=== PATIENT | female | born 1975 | race Caucasian/White ===

== ENCOUNTER 2019-07-04 16:42 | Emergency (ER) | payer MEDICARE, MEDICAID, SELFPAY ==
[2019-07-04] VITALS (7 sets, daily range): BP systolic 114–124; BP diastolic 63–94; PULSE 81–90; RESP 14–18; TEMP 37.2; O2SAT 98–100; BMI 33.6
--- NOTE | 2019-07-04 17:04 | CTR_ITS ---
PROCEDURE INFORMATION: Exam: CT Abdomen And Pelvis With Contrast Exam date and time: 07/04/2019 5:33 PM Age: 43 years old Clinical indication: Abdominal pain; Localized; Prior surgery; Surgery date: 6+ months; Surgery type: Appy, hyst; Patient HX: C/O lower abd/pelvic pain w rectal bleeding TECHNIQUE: Imaging protocol: Computed tomography of the abdomen and pelvis with intravenous contrast. Total DLP: 577.8 mGy-cm Radiation optimization: All CT scans at this facility use at least one of these dose optimization techniques: automated exposure control; mA and/or kV adjustment per patient size (includes targeted exams where dose is matched to clinical indication); or iterative reconstruction. Contrast material: OMNI 300; Contrast volume: 95 ml; Contrast route: 20G; Other contrast: Route: Oral, Material: dilute Omni 300 - 20 ml, Volume: 450; COMPARISON: CT Abdomen/[place] [id number] 10/20/2016 3:28 PM FINDINGS: Liver: Normal. No mass. Gallbladder and bile ducts: The gallbladder has been removed. Pancreas: Normal. No ductal dilation. Spleen: Normal. No splenomegaly. Adrenals: Normal. No mass. Kidneys and ureters: Normal. No hydronephrosis. Stomach and bowel: There are multiple colonic diverticula. Associated mucosal thickening and mesenteric inflammatory stranding is present at the junction of the distal descending and sigmoid colon consistent with diverticulitis. No large abscess formation is seen. Appendix: There has been an appendectomy. Intraperitoneal space: Unremarkable. No free air. No significant fluid collection. Vasculature: Unremarkable. No abdominal aortic aneurysm. Lymph nodes: Unremarkable. No enlarged lymph nodes. Bladder: Unremarkable as visualized. Reproductive: The uterus is not visualized, consistent with hysterectomy. 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 There is a transitional lumbosacral vertebra as seen on the prior study. Degenerative changes are present in the visualized spine. Soft tissues: Unremarkable. CT/CT abdomen pelvis w con* [id number] IMPRESSION: Findings consistent with acute diverticulitis. Radiation Dose CTDIVOL = (mGy): DLP = 577.8 (mGy-cm)
--- NOTE | 2019-07-04 17:08 | ED_ITS ---
HPI - Abdominal Pain General: Chief Complaint: Abdominal Pain Stated Complaint: rectal bleeding for several days Time Seen by Provider: 07/04/19 16:57 History of Present Illness: HPI narrative: Patient is a 43-year-old female who presents to the emergency department complaint of bright red blood with BMs for last 9 days and abdominal cramping and pain for last 7 days. She states initially she took 800 mg of Motrin for pain but only did that for 3 days and then was told to stop. She is not on any other blood thinners and is taken no other NSAIDs. She states she has had rectal bleeding in the past but usually resolved. She admits to ongoing fatigue. She has not informed her primary care provider or oncologist. History of breast cancer, status post chemo and radiation therapy. Denies a history of colitis or specific diverticulitis. She has [id number] placed. Status post lumpectomy. Denies any recent colonoscopy. She has no allergies to medications. Patient has pictures of shows bright red blood in the toilet. MD elicited complaint: abdominal pain Pertinent past history: gastrointestinal bleeding Pain Consistency: intermittent Location: LLQ Severity: moderate Quality: cramping Radiation: back Migration to: LL Exacerbating factors: bowel movement Relieving factors: nothing Associated Symptoms: Reports GI cramping, hematochezia and melena; Denies dysuria and fever(s) Treatments prior to arrival: NSAIDs Review of Systems Const: Denies: fever Eyes: Denies: change in vision ENMT: Denies: dry mouth Card: Denies: edema Resp: Denies: shortness of breath GI: Reports: cramping, blood in stool and black tarry stool : Denies: flank pain, difficulty urinating or painful urination Musc: Denies: extremity swelling or redness Skin/Breast: Denies: rash or skin swelling Neuro: Denies: headache or weakness in extremities Psych: Denies: anxiety Endo: Denies: excessive urination Herb/Lymph: Denies: purpura All/Imm: Denies: hives PFSH ED PFSH: Statuses (acute, chronic, etc) shown below reflect problem list status as previously entered and may not be historically accurate Social History Smoking and tobacco status: current every day smoker Physical Exam Const: COMMON NORMALS: no apparent distress, oriented x3 and alert ORIENTATION/CONSCIOUSNESS: Yes oriented to person and Yes oriented to place HENMT: COMMON NORMALS: normocephalic HEAD & SCALP: normal to inspection and normocephalic Eye: COMMON NORMALS: PERRL, EOMs intact bilaterally and conjunctivae normal GENERAL EYE: normal appearance of both eyes CONJUNCTIVA: Yes conjunctivae normal PUPIL: Yes PERRL Neck/C-Spine: COMMON NORMALS: full ROM, no lymphadenopathy, supple, no meningeal signs and no JVD GENERAL: Yes normal visual inspection and Yes tra david midline Lymph: LYMPHATIC: no lymphadenopathy noted Chest: COMMONS NORMALS: inspection of chest normal Resp: COMMON NORMALS: normal respiratory effort, no retractions and clear to auscultation bilaterally EFFORT & INSPECTION: Yes able to speak in complete sentences AUSCULTATION: clear to auscultation bilaterally Cardio: COMMON NORMALS: no JVD, regular rate and regular rhythm RATE: regular rate RHYTHM: regular rhythm GI: AUSCULTATION: Yes normoactive bowel sounds PALPATION: Yes tender (moderate) Details: LLQ : COMMON NORMALS: Yes no CVA tenderness BLADDER/KIDNEY EXAM: Yes no CVA tenderness Back/Pelvis: COMMON NORMALS: no CVA tenderness THORACIC SPINE/UPPER BACK: Y es normal to inspection LUMBAR SPINE/LOWER BACK: Yes normal to inspection Extremity: COMMON NORMALS: normal to inspection, full ROM and normal capillary refill GENERAL: Yes normal exam except as noted Neuro: COMMON NORMALS: oriented x3, CN's II-XII intact bilaterally, moves all extremities, no focal motor deficits and no sensory deficits noted SENSORIUM/ORIENTATION: Yes alert, Yes oriented to person and Yes oriented to place MENINGEAL SIGNS: Yes no meningeal signs SPEECH: speech normal GAIT: Yes normal gait Psych: COMMON NORMALS: mental status grossly normal, thought process normal, cooperative, affect normal and speech normal APPEARANCE: Yes grossly normal SPEECH: Yes normal speech THOUGHT PROCESS: normal thought process Skin: COMMON NORMALS: no rashes or lesions noted, no wounds and skin turgor normal GENERAL SKIN EXAM: no rashes or lesions noted, elasticity normal and turgor normal Course ED course: Lab, IV and CT with contrast ordered for GI bleed exam. Patient with obvious bright red blood with BMs. Vital Signs: Vital signs: Vital Signs Temperature 98.9 F 07/04/19 16:45 Pulse Rate 90 07/04/19 20:00 Respiratory Rate 16 07/04/19 20:07 Blood Pressure 114/71 07/04/19 20:00 Pulse Oximetry 100 07/04/19 20:07 MDM - Abdominal Pain MDM Narrative: Medical decision making narrative: CT abdomen pelvis shows diverticulitis. Patient has no leukocytosis. Hemoglobin is stable. Do not see indication for admission or further laboratory imaging studies. Will discharge home with Cipro and Flagyl. Patient is directed to follow-up with primary care provider for ongoing evaluation. Will provide hydrocodone and Colace for discharge as well Lab Data: Labs: Lab Results 07/04/19 07/04/19 07/04/19 Range/Units 17:25 17:25 17:25 WBC 7.5 (4.0-10.0) 10^3/ uL RBC 4.17 (4.1-5.3) 10^6/u L Hgb 11.5 (11.5-15.3) g/dL Hct 36.6 L (37.0-47.0) % MCV 87.8 (81-99) fL MCH 27.6 L (28.0-34.0) pg MCHC 31.4 (30.0-36.0) g/dL RDW 13.7 (12.1-15.1) % Plt Count 266 (130-400) 10^3/c mm MPV 8.8 (7.4-10.4) fL Neut % (Auto) 59.0 % Lymph % (Auto) 30.3 % [place] % (Auto) 4.3 % Eos % (Auto) 5.2 % Baso % (Auto) 0.7 % Neut # (Auto) 4.4 (1.8-7.7) 10^3/u L Lymph # (Auto) 2.3 (0.8-4.8) 10^3/u L [place] # (Auto) 0.3 (0.2-0.9) 10^3/u L Eos # (Auto) 0.4 (0.0-0.8) 10^3/u L Baso # (Auto) 0.1 (0.0-0.1) 10^3/u L Nucleated RBC % (a uto) 0 % Nucleated RBCs # 0.0 /100WBC PT 13.20 (10.5-13.3) SECO NDS INR 0.97 (0.8-1.2) APTT 30.9 (23.9-36.7) SECO NDS Sodium 141 (136-145) mmol/L Potassium 3.9 (3.5-5.1) mmol/L Chloride 103 (98-107) mmol/L Carbon Dioxide 27 (22-29) mmol/L Anion Gap 14.9 (5-19) BUN 13 (6-20) mg/dL Creatinine 0.9 (0.5-0.9) mg/dL GFR Calculation 67.7 L (90-130) mL/min Glucose 167 H (65-115) mg/dL Calcium 9.5 (8.5-10.5) mg/dL Total Bilirubin 0.2 (0.15-1.2) mg/dL AST 17 (0-32) U/L ALT 15 (0-33) U/L Alkaline Phosphata se 124 H (35-105) IU/L Total Protein 7.8 (6.6-8.7) g/dL Albumin 4.1 (3.5-5.2) g/dL Globulin 3.7 (1.3-4.6) g/dL HCG, Qual (Negative) Urine Color (Yellow) Urine Appearance (CLEAR) Urine pH (5-7) Ur Specific Gravit y (1.005-1.030) Urine Protein (Negative) Urine Glucose (UA) (Normal) Urine Ketones (Negative) Urine Occult Blood (Negative) Urine Nitrate (Negative) Urine Bilirubin (NEGATIVE) Urine Urobilinogen (Negative) mg/dL Ur Leukocyte Jessy ase (Negative) Urine RBC (0-2) /hpf Urine WBC (0-5) /hpf Ur Squamous Epith Cells (0-5) Urine Bacteria (NONE) Urine Mucus Blood Type Antibody Screen 07/04/19 07/04/19 07/04/19 Range/Units 17:25 17:28 17:28 WBC (4.0-10.0) 10^3/ uL RBC (4.1-5.3) 10^6/u L Hgb (11.5-15.3) g/dL Hct (37.0-47.0) % MCV (81-99) fL MCH (28.0-34.0) pg MCHC (30.0-36.0) g/dL RDW (12.1-15.1) % Plt Count (130-400) 10^3/c mm MPV (7.4-10.4) fL Neut % (Auto) % Lymph % (Auto) % [place] % (Auto) % Eos % (Auto) % Baso % (Auto) % Neut # (Auto) (1.8-7.7) 10^3/u L Lymph # (Auto) (0.8-4.8) 10^3/u L [place] # (Auto) (0.2-0.9) 10^3/u L Eos # (Auto) (0.0-0.8) 10^3/u L Baso # (Auto) (0.0-0.1) 10^3/u L Nucleated RBC % (a uto) % Nucleated RBCs # /100WBC PT (10.5-13.3) SECO NDS INR (0.8-1.2) APTT (23.9-36.7) SECO NDS Sodium (136-145) mmol/L Potassium (3.5-5.1) mmol/L Chloride (98-107) mmol/L Carbon Dioxide (22-29) mmol/L Anion Gap (5-19) BUN (6-20) mg/dL Creatinine (0.5-0.9) mg/dL GFR Calculation (90-130) mL/min Glucose (65-115) mg/dL Calcium (8.5-10.5) mg/dL Total Bilirubin (0.15-1.2) mg/dL AST (0-32) U/L ALT (0-33) U/L Alkaline Phosphata se (35-105) IU/L Total Protein (6.6-8.7) g/dL Albumin (3.5-5.2) g/dL Globulin (1.3-4.6) g/dL HCG, Qual Negative (Negative) Urine Color Straw (Yellow) Urine Appearance Clear (CLEAR) Urine pH 5 (5-7) Ur Specific Gravit y 1.020 (1.005-1.030) Urine Protein Neg (Negative) Urine Glucose (UA) Norm (Normal) Urine Ketones Negative (Negative) Urine Occult Blood Neg (Negative) Urine Nitrate Negative (Negative) Urine Bilirubin Neg (NEGATIVE) Urine Urobilinogen Norm (Negative) mg/dL Ur Leukocyte Jessy ase Negative (Negative) Urine RBC None (0-2) /hpf Urine WBC None (0-5) /hpf Ur Squamous Epith Cells 15-25 H (0-5) Urine Bacteria Trace (NONE) Urine Mucus 1+ Blood Type O Negative Antibody Screen Negative Discharge Plan Discharge Patient Disposition: Home, Self-Care Clinical Impression: Diverticulitis Condition: Stable Prescriptions: New hydrocodone-acetaminophen 5-325 mg tablet 1 tab PO Q4H PRN (Reason: pain) Qty: 14 RF: 0 docusate sodium [Colace] 100 mg capsule 100 mg PO DAILY Qty: 30 RF: 0 metronidazole [Flagyl] 500 mg tablet 500 mg PO Q8H 10 Days Qty: 30 RF: 0 ciprofloxacin HCl [Cipro] 500 mg tablet 500 mg PO Q12H Qty: 20 RF: 0 No Action alprazolam 1 mg tablet 1 mg PO TID PRN (Reason: Anxiety) RF: 0 sertraline 100 mg tablet 100 mg PO DAILY RF: 0 tramadol 50 mg tablet 50 mg PO Q4H PRN (Reason: Pain) RF: 0 zolpidem 10 mg tablet 10 mg PO BEDTIME PRN (Reason: Insomnia) RF: 0 Discharge Orders: Discharge Order (Routine); Ordered 07/04/19 Ordered By: Jake Mancilla Referrals: Eduar Dale APN [Primary Care Provider] - 07/06/19 Discharge Diet: Soft Mechanical Discharge Activity: Increase activity as tolerated Patient Instructions: Diverticulitis (ED) Activity Restrictions/Additional Instructions: Take medication as directed. Follow-up with your primary care provider for ongoing evaluation. Return for worsening symptoms or concerns. Coding Level of Care Code ED Inside Wireman for Andrés Hughes Exam Problem Focused
[2019-07-04 17:36] LABS: Basophils # 0.1 10^3/uL (0.0-0.1); Basophils % 0.7 %; Eosinophils # 0.4 10^3/uL (0.0-0.8); Eosinophils % 5.2 %; Hematocrit 36.6 % (37.0-47.0); Hemoglobin 11.5 g/dL (11.5-15.3); Lymphocytes # 2.3 10^3/uL (0.8-4.8); Lymphocytes % 30.3 %; Mean Corpuscular HGB Conc 31.4 g/dL (30.0-36.0); Mean Corpuscular Hemoglobin 27.6 pg (28.0-34.0); Mean Corpuscular Volume 87.8 fL (81-99); Mean Platelet Volume 8.8 fL (7.4-10.4); Monocytes # 0.3 10^3/uL (0.2-0.9); Monocytes % 4.3 %; Neutrophils # 4.4 10^3/uL (1.8-7.7); Nucleated Red Blood Cells % 0 %; Platelet Count 266 10^3/cmm (130-400); Red Blood Count 4.17 10^6/uL (4.1-5.3); Red Cell Distribution Width 13.7 % (12.1-15.1); White Blood Count 7.5 10^3/uL (4.0-10.0)
[2019-07-04 17:55] LABS: INR 0.97 (0.8-1.2)
[2019-07-04 17:56] LABS: Partial Thromboplastin Time 30.9 SECONDS (23.9-36.7)
[2019-07-04 17:57] LABS: HCG Qualitative Urine. Negative (Negative)
[2019-07-04 18:04] LABS: Alanine Aminotransferase 15 U/L (0-33); Albumin Level 4.1 g/dL (3.5-5.2); Alkaline Phosphatase 124 IU/L (35-105); Anion Gap 14.9 (5-19); Aspartate Amino Transferase 17 U/L (0-32); Blood Urea Nitrogen 13 mg/dL (6-20); Calcium 9.5 mg/dL (8.5-10.5); Carbon Dioxide 27 mmol/L (22-29); Chloride 103 mmol/L (98-107); Globulin 3.7 g/dL (1.3-4.6); Glomerular Filtration Rate 67.7 mL/min (90-130); Glucose 167 mg/dL (65-115); Potassium 3.9 mmol/L (3.5-5.1); Sodium 141 mmol/L (136-145); Total Bilirubin 0.2 mg/dL (0.15-1.2); Total Protein 7.8 g/dL (6.6-8.7)
[2019-07-04 18:05] LABS: Bilirubin Urine Neg (NEGATIVE); Blood Urine Neg (Negative); Glucose Urine UA Norm (Normal); Ketones Urine Negative (Negative); Leukocyte Esterase Urine Negative (Negative); Nitrate Urine Negative (Negative); Protein Urine Neg (Negative); Urine Appearance Clear (CLEAR); Urine Color Straw (Yellow); Urobilinogen Urine Norm (Negative); pH Urine 5 (5-7)
[2019-07-04] MEDS: sodium chloride 0.9% 1,000 ML 999 ML IV (18:05)
[2019-07-04] MEDS: pantoprazole 40 mg SDV 80 MG IVP (18:05)
[2019-07-04 18:08] LABS: Bacteria Urine TRACE; Mucus Urine 1+; Squamous Epithelial Cell Urine 15-25 (0-5)
[2019-07-04 18:09] LABS: Add Urine Culture? No
[2019-07-04] MEDS: LORazepam 2 mg/mL INJ 1 mL IVP (18:25)
--- NOTE | 2019-07-04 19:02 | PC.NURSE ---
REPORT RECEIVED FROM [facility] GROVER AND CARE TRANSFERRED TO [facility] ELDRIDGE
--- NOTE | 2019-07-04 19:03 | PC.NURSE ---
PATIENT TO CT
[2019-07-04] MEDS: iohexol 300 mg/mL 100 mL Btl IV (19:09)
[2019-07-04] MEDS: iohexol 300 mg/mL 50 mL Btl PO (19:10)
[2019-07-04] MEDS: HYDROmorphone 1 mg/mL INJ 1 mL IVP (20:07)
== END 2019-07-04 21:01 | disposition home or self-care (01) ==
PROVIDERS: Emergency Provider Nurse Practitioner; Family Provider Nurse Practitioner Family; PCP Nurse Practitioner Family
DX: K57.92 Diverticulitis of intestine, part unspecified, without perforation or abscess without bleeding (principal); F17.210 Nicotine dependence, cigarettes, uncomplicated
CPT/HCPCS: 36415; 74177; 80053; 81001; 81025; 85025; 85610; 85730; 86850; 86900; 96360; 96361; 96374; 96375; 99283; C9113; J1170; J2060; J7030; Q9967

== ENCOUNTER 2020-11-24 09:26 | Emergency (ER) | payer MEDICARE, MEDICAID, SELFPAY ==
[2020-11-24] VITALS (8 sets, daily range): BP systolic 111–145; BP diastolic 72–91; PULSE 69–93; RESP 15–18; TEMP 36.6; O2SAT 95–100; BMI 33.6
--- NOTE | 2020-11-24 10:28 | CT_ITS ---
WS: [id number] CT NECK WITH CONTRAST HISTORY: ant neck swelling; dysphagia; ? Inflammation of the thyroid. TECHNIQUE: Contiguous 5 mm axial images are performed through the neck with intravenous contrast. Sag ittal and coronal reformats are also submitted. All CT scans at [facility] use at least o ne of these dose optimization techniques: automated exposure control; mA and/or kV adjustment per pat ient size (includes targeted exams where dose is matched to clinical indication); or iterative recons truction. CONTRAST: CONTRAST: Omnipaque 300; 95 mL IV. DLP: 491.87 mGy.cm COMPARISON: None available. There is a large amount of soft tissue edema in the subcutaneous soft tissues around the neck. There is significant soft tissue edema and thickening within the larynx. There is extensive soft tissue thi ckening and loss of the normal planes in the neck beginning at the level of the hyoid bone and extend ing into the subglottic soft tissue. Near circumferential soft tissue edema. More focal soft tissue t hickening along the posterior larynx at the level of the vocal cords extends greatest to the LEFT of midline. The largest area of soft tissue masslike enhancement is 2.3 cm x 3.9 cm. There is extension posterior to involve the retropharyngeal space. Loss of the normal piriform sinus and aryepiglottic f olds. Moderate narrowing of the airway. Soft tissue thickening component does appear to extend along the LEFT supraglottic region towards the palatine tonsil. Epiglottis appears normal size. Bilateral cervical chain lymph nodes. The largest lymph node is hyper vascular level IIa on the LEFT measuring 12 mm in short axis diameter. Visualized paranasal sinuses and mastoid air cells are normal. Lung apices are clear. CT/CT neck w con* [id number] IMPRESSION: 1. Moderate narrowing of the larynx secondary to a large area of soft tissue i nflammation and edema encroaching into the airway. 2. Soft tissue mass centered in the posterior LEFT larynx at the level of voca l cords measures 2.3 x 3.9 cm. There is additional soft tissue edema and thicke jade extending posterior and to the RIGHT of midline and also into the LEFT pal atine tonsil and pharynx. 3. Bilateral cervical chain lymphadenopathy. 4. Subcutaneous soft tissue edema in the soft tissues over the anterior neck. 5. Differential includes neoplasm and infection/angioedema. Notified Maximinokali Garzon MD at 11/24/2020 11:28 AM.
--- NOTE | 2020-11-24 10:30 | XR_ITS ---
WS: [id number] Chest 2 views, 11/24/2020 Clinical Data: neck swelling; remote h/o breast ca Comparison: Portable chest, 10/20/2016. Findings: No nodules, masses or effusions are seen. The heart is normal. The pulmonary vascularity is not increased. No pneumonia or pneumothorax is seen. There is a right Port-A-Cath in good position. There are clips in the left axilla from surgery. XR/XR chest 2V* [id number] Impression: Negative chest.
--- NOTE | 2020-11-24 10:33 | W.ED.GENADLT ---
HPI - General Adult General: Chief complaint: General Medical Stated complaint: swollen throat Time Seen by Provider: 11/24/20 10:21 Source: patient Mode of arrival: ambulatory Limitations: no limitations History of Present Illness: HPI narrative: Patient with sore throat, mild anterior neck swelling, and poor ability to swallow food or water for the past 4 days. Patient states that she left AGAINST MEDICAL ADVICE from a different hospital yesterday. She states that she had ENT exam last night at the hospital and ENT doctor found no problems with abscess or tumor. They wanted to observe the patient and continue IV antibiotics and IV steroids. Patient left AGAINST MEDICAL ADVICE at that point. She stated she want to come to this hospital instead. She denies any fever today. However, she did have fever to 103 degrees couple days ago. She states she had 1 dose of steroid, 1 dose of antibiotic and IV fluid administration at the other hospital. She reports she had a negative strep test and negative Covid test yesterday. She reports a history of breast cancer approximately 5 years ago and has been in remission. She follow-up with her oncologist approximately 2 weeks ago had a negative PET scan at that time. Onset (ago): day(s) (4) Location: neck (Throat) Radiation: non-radiation Severity: moderate Quality: sharp Pain Consistency: constant Relieving factors: none Exacerbating factors: other (Swallowing or drinking or eating.) Associated symptoms: Reports fevers/chills and rash (Minimal red rash around the thyroid area.); Deny chest pain, cough, diaphoresis, decreased appetite, dyspnea, headache(s), malaise, nausea, palpitations, seizures, short of breath, syncope, vomiting or weakness Treatments prior to arrival: none Review of Systems Const: Reports: fever(s); Denies: malaise or diaphoresis Eyes: Denies: change in vision ENMT: Reports: throat pain, odynophagia and other (Dysphagia) Card: Denies: chest pain, palpitations or syncope Resp: Denies: dyspnea GI: Denies: abdominal pain, nausea or vomiting : Denies: flank pain Musc: Reports: neck pain (Anterior neck pain around the thyroid area.); Denies: back pain Skin/Breast: Reports: rash (Minimal red rash around the thyroid area.); Denies: skin tenderness Neuro: Denies: headache(s) Psych: Denies: anxiety Herb/Lymph: Reports: enlarged lymph nodes; Denies: easy bruising PFSH ED PFSH: Social History Smoking and tobacco status: current every day smoker Physical Exam Const: COMMON NORMALS: no acute distress, patient oriented x3, no limitations and well nourished GENERAL APPEARANCE: cooperative HENMT: COMMON NORMALS: normocephalic and atraumatic HEAD & SCALP: normocephalic and atraumatic FACE & SINUS: normal facial exam MOUTH: Normal oral and palatal mucosa present THROAT: posterior oropharynx normal (Normal posterior pharynx exam. No soft tissue swelling or angioedema.), tonsils normal and uvula midline Eye: COMMON NORMALS: EOMs intact bilaterally Neck/C-Spine: COMMON NORMALS: full ROM, supple and no meningeal signs GENERAL: Yes other (Mild anterior soft tissues swelling to the neck around the thyroid area.) OTHER: Minimal red rash around the thyroid area. Mild lymphadenopathy in the anterior neck. No fluctuance. No abscess palpated. Thyroid does appear tender to palpation. Thyroid may be mildly enlarged. Lymph: LYMPHATIC: no lymphadenopathy noted Chest: COMMONS NORMALS: normal inspection of the chest and normal palpation of entire chest wall CHEST: No Ecchymosis present and No rash Resp: COMMON NORMALS: normal respiratory effort, No retractions and clear to auscultation bilaterally EFFORT & INSPECTION: No respiratory distress AUSCULTATION: clear to auscultation bilaterally Cardio: COMMON NORMALS: regular rate, regular rhythm and Peripheral pulses 2+ throughout JUGULAR VENOUS DISTENTION: no JVD RATE: regular rate RHYTHM: regular rhythm PERIPHERAL PULSES: Peripheral pulses 2+ throughout GI: COMMON NORMALS: Normal to inspection, nondistended, normoactive bowel sounds present and non-tender : COMMON NORMALS: Yes no CVA tenderness BLADDER/KIDNEY EXAM: Yes no CVA tenderness Back/Pelvis: COMMON NORMALS: no CVA tenderness Extremity: COMMON NORMALS: normal to inspection, full ROM and capillary refill normal Neuro: COMMON NORMALS: patient oriented x3, CN's II-XII intact bilaterally, no focal motor deficits and no sensory deficits noted MENINGEAL SIGNS: Yes no meningeal signs Psych: COMMON NORMALS: mental status grossly normal and Normal thought process present THOUGHT PROCESS: Normal thought process present Skin: COMMON NORMALS: no rashes or lesions noted and no wounds GENERAL SKIN EXAM: no rashes or lesions noted Course Vital Signs: Vital signs: Vital Signs Temperature 97.9 F 11/24/20 10:08 Pulse Rate 87 11/24/20 10:33 Respiratory Rate 15 11/24/20 10:33 Blood Pressure 118/91 11/24/20 10:33 Pulse Oximetry 98 11/24/20 10:33 MDM - General Adult MDM Narrative: Medical decision making narrative: Discussed case with hospitalist at [facility] in [facility]. Dr. Martínez will accept the patient in transfer. The ENT doctor is aware of the case and has been sent images of the paralaryngeal infection. Medical Records: Attestation: I reviewed the patient's medical records. Medical records narrative: Medical records ordered from previous hospital. I reviewed medical records from [facility] showing that patient received Unasyn and Decadron and was evaluated by ENT. ENT thought that patient had supraglottitis infection. They recommended continued observation. Patient did have a 102 temperature there. Patient left AGAINST MEDICAL ADVICE according to the chart. Lab Data: Attestation: I reviewed the patient's lab results. Labs: Lab Results 11/24/20 11/24/20 11/24/20 Range/Units 10:48 10:48 10:48 WBC 25.4 H (4.0-10.0) 10^3/ uL RBC 4.03 L (4.1-5.3) 10^6/u L Hgb 11.2 L (11.5-15.3) g/dL Hct 35.4 L (37.0-47.0) % MCV 87.8 (81-99) fL MCH 27.8 L (28.0-34.0) pg MCHC 31.6 (30.0-36.0) g/dL RDW 13.6 (12.1-15.1) % Plt Count 217 (130-400) 10^3/c mm MPV 8.5 (7.4-10.4) fL Neut % (Auto) 88.0 % Lymph % (Auto) 5.5 % Cherokee % (Auto) 3.6 % Eos % (Auto) 0.4 % Baso % (Auto) 0.0 % Neut # (Auto) 22.39 H (1.8-7.7) 10^3/u L Lymph # (Auto) 1.4 (0.8-4.8) 10^3/u L Cherokee # (Auto) 0.9 (0.2-0.9) 10^3/u L Eos # (Auto) 0.1 (0.0-0.8) 10^3/u L Baso # (Auto) 0.0 (0.0-0.1) 10^3/u L Nucleated RBC % (a uto) 0 % Nucleated RBCs # 0.0 /100WBC Sodium 140 (136-145) mmol/L Potassium 4.0 (3.5-5.1) mmol/L Chloride 104 (98-107) mmol/L Carbon Dioxide 25 (22-29) mmol/L Anion Gap 15.0 (5-19) BUN 15 (6-20) mg/dL Creatinine 0.6 (0.5-0.9) mg/dL GFR Calculation 107.2 (90-130) mL/min Glucose 121 H (65-115) mg/dL Calculated Osmolal ity 292 (285-295) mOsm/k g Lactate 1.3 (0.5-2.2) mmol/L Calcium 9.2 (8.5-10.5) mg/dL Magnesium (1.7-2.3) mg/dL TSH 6.41 H (0.27-4.20) uIU/ mL Free T4 0.72 L (0.82-1.77) ng/d L Free T3 1.3 L (2.0-4.4) PG/ML Urine Color (Yellow) Urine Appearance (CLEAR) Urine pH (5-7) Ur Specific Gravit y (1.005-1.030) Urine Protein (Negative) Urine Glucose (UA) (Normal) Urine Ketones (Negative) Urine Blood (Negative) Urine Nitrate (Negative) Urine Bilirubin (Negative) Urine Urobilinogen (Negative) mg/dL Ur Leukocyte Jessy ase (Negative) Urine RBC (0-2) /hpf Urine WBC (0-5) /hpf Ur Squamous Epith Cells (0-5) /hpf Amorphous Sediment Urine Bacteria (NONE) /hpf Urine Mucus /hpf 11/24/20 11/24/20 Range/Units 10:48 12:11 WBC (4.0-10.0) 10^3/ uL RBC (4.1-5.3) 10^6/u L Hgb (11.5-15.3) g/dL Hct (37.0-47.0) % MCV (81-99) fL MCH (28.0-34.0) pg MCHC (30.0-36.0) g/dL RDW (12.1-15.1) % Plt Count (130-400) 10^3/c mm MPV (7.4-10.4) fL Neut % (Auto) % Lymph % (Auto) % Cherokee % (Auto) % Eos % (Auto) % Baso % (Auto) % Neut # (Auto) (1.8-7.7) 10^3/u L Lymph # (Auto) (0.8-4.8) 10^3/u L Cherokee # (Auto) (0.2-0.9) 10^3/u L Eos # (Auto) (0.0-0.8) 10^3/u L Baso # (Auto) (0.0-0.1) 10^3/u L Nucleated RBC % (a uto) % Nucleated RBCs # /100WBC Sodium (136-145) mmol/L Potassium (3.5-5.1) mmol/L Chloride (98-107) mmol/L Carbon Dioxide (22-29) mmol/L Anion Gap (5-19) BUN (6-20) mg/dL Creatinine (0.5-0.9) mg/dL GFR Calculation (90-130) mL/min Glucose (65-115) mg/dL Calculated Osmolal ity (285-295) mOsm/k g Lactate (0.5-2.2) mmol/L Calcium (8.5-10.5) mg/dL Magnesium 1.6 L (1.7-2.3) mg/dL TSH (0.27-4.20) uIU/ mL Free T4 (0.82-1.77) ng/d L Free T3 (2.0-4.4) PG/ML Urine Color Yellow (Yellow) Urine Appearance Clear (CLEAR) Urine pH 7 (5-7) Ur Specific Gravit y 1.005 (1.005-1.030) Urine Protein 2+ H (Negative) Urine Glucose (UA) Norm (Normal) Urine Ketones Negative (Negative) Urine Blood 3+ H (Negative) Urine Nitrate Negative (Negative) Urine Bilirubin 1+ H (Negative) Urine Urobilinogen 1 H (Negative) mg/dL Ur Leukocyte Jessy ase Negative (Negative) Urine RBC 0-4 H (0-2) /hpf Urine WBC None (0-5) /hpf Ur Squamous Epith Cells 10-15 H (0-5) /hpf Amorphous Sediment Not Reportable Urine Bacteria Trace (NONE) /hpf Urine Mucus 2+ /hpf Imaging Data^: Other CT: Radiologist's impression: Mariah Ramos 45 F [address] [id number] Scan ReportSigned Patient: Mariah RamosUnit #: [id number]: 1975Acct#:[id number]/Sex: 45 / FADM Date: 11/24/20Loc: ERRoom/Bed:Attending Dr: Ordering Provider/Ordering MD: Maximino Garzon MD Date of Service: 11/24/20 Procedure(s): CT neck w con* [id number] Accession Number(s): [id number] Report Number: [id number] WS: [id number] CT NECK WITH CONTRAST HISTORY: ant neck swelling; dysphagia; ? Inflammation of the thyroid. TECHNIQUE: Contiguous 5 mm axial images are performed through the neck with intravenous contrast. Sagittal and coronal reformats are also submitted. All CT scans at [facility] use at least one of these dose optimization techniques: automated exposure control; mA and/or kV adjustment per patient size (includes targeted exams where dose is matched to clinical indication); or iterative reconstruction. CONTRAST: CONTRAST: Omnipaque 300; 95 mL IV. DLP: 491.87 mGy.cm COMPARISON: None available. There is a large amount of soft tissue edema in the subcutaneous soft tissues around the neck. There is significant soft tissue edema and thickening within the larynx. There is extensive soft tissue thickening and loss of the normal planes in the neck beginning at the level of the hyoid bone and extending into the subglottic soft tissue. Near circumferential soft tissue edema. More focal soft tissue thickening along the posterior larynx at the level of the vocal cords extends greatest to the LEFT of midline. The largest area of soft tissue masslike enhancement is 2.3 cm x 3.9 cm. There is extension posterior to involve the retropharyngeal space. Loss of the normal piriform sinus and aryepiglottic folds. Moderate narrowing of the airway. Soft tissue thickening component does appear to extend along the LEFT supraglottic region towards the palatine tonsil. Epiglottis appears normal size. Bilateral cervical chain lymph nodes. The largest lymph node is hypervascular level IIa on the LEFT measuring 12 mm in short axis diameter. Visualized paranasal sinuses and mastoid air cells are normal. Lung apices are clear. CT/CT neck w con* [id number] IMPRESSION: 1. Moderate narrowing of the larynx secondary to a large area of soft tissue inflammation and edema encroaching into the airway. 2. Soft tissue mass centered in the posterior LEFT larynx at the level of vocal cords measures 2.3 x 3.9 cm. There is additional soft tissue edema and thickening extending posterior and to the RIGHT of midline and also into the LEFT palatine tonsil and pharynx. 3. Bilateral cervical chain lymphadenopathy. 4. Subcutaneous soft tissue edema in the soft tissues over the anterior neck. 5. Differential includes neoplasm and infection/angioedema. Notified Maximino Garzon MD at 11/24/2020 11:28 AM. Dictated By:Siena Urbano DOSigned By:Siena Urbano DOSigned Date/Time:11/24/20 1134 Discharge Plan Discharge Patient Disposition: Xfer Short-Term Hosp Clinical Impression: Laryngeal edema Condition: Stable Discharge Orders: Transfer Out of Facility (Order); Ordered 11/24/20 Ordered By: Maximino Garzon Referrals: Suyapa Witt APN [Primary Care Provider] - Coding Level of Care Code ED Certified Medication Technician for Chg Fwd Exam Comprehensive
[2020-11-24 10:57] LABS: Eosinophils # 0.1 10^3/uL (0.0-0.8); Eosinophils % 0.4 %; Hematocrit 35.4 % (37.0-47.0); Hemoglobin 11.2 g/dL (11.5-15.3); Lymphocytes # 1.4 10^3/uL (0.8-4.8); Lymphocytes % 5.5 %; Mean Corpuscular HGB Conc 31.6 g/dL (30.0-36.0); Mean Corpuscular Hemoglobin 27.8 pg (28.0-34.0); Mean Corpuscular Volume 87.8 fL (81-99); Mean Platelet Volume 8.5 fL (7.4-10.4); Monocytes # 0.9 10^3/uL (0.2-0.9); Monocytes % 3.6 %; Neutrophils # 22.39 10^3/uL (1.8-7.7); Nucleated Red Blood Cells % 0 %; Platelet Count 217 10^3/cmm (130-400); Red Blood Count 4.03 10^6/uL (4.1-5.3); Red Cell Distribution Width 13.6 % (12.1-15.1); White Blood Count 25.4 10^3/uL (4.0-10.0)
[2020-11-24 11:14] LABS: Slide Review Slide Review Perform
[2020-11-24] MEDS: dexamethasone 10 mg/mL INJ IVP (11:15)
[2020-11-24] MEDS: sodium chloride 0.9% 1,000 ML 999 ML IV (11:16)
[2020-11-24] MEDS: piperacillin-tazobactam 4.5 GM in sodium chloride 0.9% (plus) 50 ML IV (11:16)
[2020-11-24 11:19] LABS: Lactate (Lactic Acid level) 1.3 mmol/L (0.5-2.2)
[2020-11-24 11:31] LABS: Blood Urea Nitrogen 15 mg/dL (6-20); Calcium 9.2 mg/dL (8.5-10.5); Carbon Dioxide 25 mmol/L (22-29); Chloride 104 mmol/L (98-107); Free T4 Free Thyroxine 0.72 ng/dL (0.82-1.77); Glomerular Filtration Rate 107.2 mL/min (90-130); Glucose 121 mg/dL (65-115); Osmolality Calculated 292 mOsm/kg (285-295); Sodium 140 mmol/L (136-145); T3 Free 1.3 PG/ML (2.0-4.4); Thyroid Stimulating Hormone 6.41 uIU/mL (0.27-4.20)
[2020-11-24 12:19] LABS: Bilirubin Urine 1+ (Negative); Blood Urine 3+ (Negative); Glucose Urine UA Norm (Normal); Ketones Urine Negative (Negative); Leukocyte Esterase Urine Negative (Negative); Nitrate Urine Negative (Negative); Protein Urine 2+ (Negative); Specific Gravity, Urine 1.005 (1.005-1.030); Urine Appearance Clear (CLEAR); Urine Color Yellow (Yellow); Urobilinogen Urine 1 mg/dL (Negative); pH Urine 7 (5-7)
[2020-11-24 12:24] LABS: RBC Urine 0-4 /hpf (0-2)
[2020-11-24 12:25] LABS: Add Urine Culture? No; Bacteria Urine TRACE /hpf; Mucus Urine 2+ /hpf
[2020-11-24 13:04] LABS: Magnesium 1.6 mg/dL (1.7-2.3)
[2020-11-24] MEDS: acetaminophen 1,000 MG/100 ML PIGGYBACK 400 MG IV (14:35)
--- NOTE | 2020-11-24 17:14 | PC.NURSE ---
CALLED REPORT TO TO UDAY VALDERRAMA.
[2020-11-24] MEDS: ondansetron 2 mg/ML SDV 2 mL 4 MG IVP (19:54)
[2020-11-24] MEDS: morphine 4 mg/mL SDV 1 mL IVP (19:55)
== END 2020-11-24 20:05 | disposition short-term general hospital (02) ==
PROVIDERS: Emergency Provider Family Medicine; PCP Nurse Practitioner Family
DX: J38.4 Edema of larynx (principal); F17.210 Nicotine dependence, cigarettes, uncomplicated
CPT/HCPCS: 70491; 71046; 80048; 81001; 83605; 83735; 84439; 84443; 84481; 85025; 87040; 87086; 96365; 96375; 99285; J1100; J2270; J2405; J2543; J7030; Q9967